=== PATIENT | female | born 1995 | race Two or more races ===

== ENCOUNTER 2017-08-31 07:34 | Outpatient (CLI) | payer OTHER | END 2017-08-31 07:41 | disposition home or self-care (01) | LOC: SONOGRAMA 07:34 | DX: Z34.00 Encounter for supervision of normal first pregnancy, unspecified trimester (principal) ==

== ENCOUNTER 2017-09-02 16:48 | Emergency (ER) | payer OTHER ==
[~2017-09-02] VITALS: Ht 165.1 cm; Wt 97.1 kg
== END 2017-09-02 22:10 | disposition home or self-care (01) ==
LOC: ER 16:48
DX: O03.9 Complete or unspecified spontaneous abortion without complication (principal)

== ENCOUNTER 2017-09-06 06:56 | Day surgery (SDC) | payer OTHER | END 2017-09-06 15:25 | disposition home or self-care (01) | LOC: CIR.AMB 06:56 | DX: O02.1 Missed abortion (principal) ==

== ENCOUNTER 2020-04-14 21:42 | Emergency (ER) | payer OTHER ==
[~2020-04-14] VITALS: Ht 165.1 cm; Wt 97.5 kg
[2020-04-14] MEDS ORDERED: PRENATABS FA T1 EACH (22:32)
[2020-04-15] MEDS ORDERED: ACETAMINOPHEN650 M2 PO (03:22)
== END 2020-04-15 04:09 | disposition home or self-care (01) ==
LOC: ER 21:42
DX: O46.8X1 Other antepartum hemorrhage, first trimester (principal); Z3A.11 11 weeks gestation of pregnancy

== ENCOUNTER → 2020-04-22 | Outpatient (CLI) | payer OTHER ==
[~2020-04-22] MED LIST: ACETAMINOPHEN650 M2 PO; PRENATABS FA T1 EACH
== END | disposition home or self-care (01) ==
LOC: PRENATAL 09:52
PROVIDERS: ATTEND Obstetrics & Gynecology Maternal & Fetal Medicine
DX: O26.851 Spotting complicating pregnancy, first trimester (principal); O36.80X1 Pregnancy with inconclusive fetal viability, fetus 1; Z36.89 Encounter for other specified antenatal screening; Z3A.08 8 weeks gestation of pregnancy

== ENCOUNTER → 2020-05-28 | Outpatient (CLI) | payer OTHER | END | disposition home or self-care (01) | LOC: PRENATAL 10:58 | PROVIDERS: ATTEND Obstetrics & Gynecology Maternal & Fetal Medicine | DX: Z36.89 Encounter for other specified antenatal screening (principal); O36.80X1 Pregnancy with inconclusive fetal viability, fetus 1; Z3A.12 12 weeks gestation of pregnancy ==

== ENCOUNTER → 2020-07-23 | Outpatient (CLI) | payer OTHER | END | disposition home or self-care (01) | LOC: PRENATAL 08:00 | PROVIDERS: ATTEND Obstetrics & Gynecology Maternal & Fetal Medicine | DX: O35.0XX1 Maternal care for (suspected) central nervous system malformation in fetus, fetus 1 (principal); O35.3XX1 Maternal care for (suspected) damage to fetus from viral disease in mother, fetus 1; O98.512 Other viral diseases complicating pregnancy, second trimester; O99.212 Obesity complicating pregnancy, second trimester; Z36.89 Encounter for other specified antenatal screening; Z3A.20 20 weeks gestation of pregnancy ==

== ENCOUNTER 2020-07-30 10:09 | Emergency (ER) | payer OTHER ==
[~2020-07-30] VITALS: Ht 165.1 cm; Wt 103.0 kg
[2020-07-30] MEDS ORDERED: PRENATAL + DHA1 EAC1 PO (10:26)
[2020-07-30] MEDS ORDERED: ZITHROMAX500 MG PO (14:35)
== END 2020-07-30 15:03 | disposition home or self-care (01) ==
LOC: ER 10:09
DX: O26.892 Other specified pregnancy related conditions, second trimester (principal); R07.89 Other chest pain; B96.0 Mycoplasma pneumoniae [M. pneumoniae] as the cause of diseases classified elsewhere; Z34.02 Encounter for supervision of normal first pregnancy, second trimester; Z11.52 Encounter for screening for COVID-19

== ENCOUNTER 2020-08-18 10:46 | Emergency (ER) | payer OTHER ==
[~2020-08-18] VITALS: Ht 165.1 cm; Wt 104.3 kg
[~2020-08-18 10:46] MED LIST changes: +PRENATAL + DHA1 EAC1 PO; +ZITHROMAX500 MG PO
== END 2020-08-18 14:05 | disposition home or self-care (01) ==
LOC: ER 10:46
DX: O26.892 Other specified pregnancy related conditions, second trimester (principal); M79.641 Pain in right hand; Z34.02 Encounter for supervision of normal first pregnancy, second trimester

== ENCOUNTER 2020-11-24 15:00 | Inpatient (IN) | payer OTHER ==
[~2020-11-24] VITALS: Ht 165.1 cm; Wt 3.6 kg
[2020-12-05] MEDS ORDERED: OXYC1TAB9 PO (12:18)
[2020-12-05] MEDS ORDERED: IBUPROFEN800 MG PO (12:18)
== END 2020-12-05 13:06 | disposition home or self-care (01) | DRG 788 ==
LOC: LDR 12-02 05:47 → OB/GYN 12-02 20:26
PROVIDERS: ADMIT Specialist; ATTEND Specialist
PROC: 10907ZC Drainage of Amniotic Fluid, Therapeutic from Products of Conception, Via Natural or Artificial Opening (ICD-10-PCS; 2020-12-02)
PROC: 3E033VJ Introduction of Other Hormone into Peripheral Vein, Percutaneous Approach (ICD-10-PCS; 2020-12-02)
PROC: 4A1HXFZ Monitoring of Products of Conception, Cardiac Rhythm, External Approach (ICD-10-PCS; 2020-12-02)
PROC: 10D00Z1 Extraction of Products of Conception, Low, Open Approach (ICD-10-PCS; principal; 2020-12-02 18:30)
DX: O65.8 Obstructed labor due to other maternal pelvic abnormalities (principal); Z37.0 Single live birth; Z3A.39 39 weeks gestation of pregnancy; Z20.822 Contact with and (suspected) exposure to COVID-19

== ENCOUNTER 2023-12-23 13:48 | Emergency (ER) | payer OTHER ==
[~2023-12-23] VITALS: Ht 165.1 cm; Wt 98.0 kg
[~2023-12-23 13:48] MED LIST changes: +IBUPROFEN800 MG PO; +OXYC1TAB9 PO
[2023-12-23 15:24] LABS: HEMOGLOBIN 11.9 g/dL (12.0-15.00); MEAN CELL VOLUME 88.6 fL (80.00-100.00); MEAN CORPUSCULAR HGB CONC 33.9 g/dl (32.0-36.0); PLATELET COUNT 243 K/uL (150-450); RED BLOOD COUNT 3.95 M/uL (4.00-6.00); RED CELL DISTRIBUTION WIDTH 13.3 % (11.5-14.5)
[2023-12-23 16:05] LABS: CALCIUM 8.7 mg/dL (8.5-10.1); CREATININE SERUM 0.67 mg/dL (0.55-1.02); GFR 105.58; POTASSIUM 3.91 mEq/L (3.5-5.1)
[2023-12-23 16:32] LABS: PH,URINE 5.5 (5.0-8.0); URINE APPEARANCE Clear; URINE BILIRRUBIN Negative (NEGATIVE); URINE BLOOD Moderate; URINE COLOR Yellow; URINE GLUCOSE Negative (NEGATIVE); URINE KETONE Negative (NEGATIVE); URINE LEUKOCYTE Trace; URINE NITRATE Negative; URINE PROTEIN Negative (NEGATIVE); URINE UROBILINOGEN 0.2 E.U./dl
[2023-12-23 16:35] LABS: URINE BACTERIA 1380.8 uL (0.0-1933); URINE EPITHELIAL CELLS 48.3 uL (0.0-38.8); URINE RBC 3.8 uL (0.0-20.8); URINE WBC 53.3 uL (0.0-23.2)
[2023-12-23 16:39] LABS: URINE CAST 0.15 uL (0.0-1.40)
== END 2023-12-23 17:45 | disposition home or self-care (01) ==
LOC: ER 13:49
PROVIDERS: General Practice
DX: O20.9 Hemorrhage in early pregnancy, unspecified (principal); Z3A.01 Less than 8 weeks gestation of pregnancy

== ENCOUNTER 2023-12-24 08:51 | Emergency (ER) | payer OTHER ==
[~2023-12-24] VITALS: Ht 165.1 cm; Wt 98.0 kg
[2023-12-24 10:43] LABS: HEMATOCRIT 35.6 % (36.0-45.00); HEMOGLOBIN 12.1 g/dL (12.0-15.00); MEAN CELL VOLUME 90.3 fL (80.00-100.00); MEAN CORPUSCULAR HEMOGLOBIN 30.7 pg (27.00-32.0); PLATELET COUNT 232 K/uL (150-450); RED BLOOD COUNT 3.94 M/uL (4.00-6.00); RED CELL DISTRIBUTION WIDTH 13.6 % (11.5-14.5)
[2023-12-24 12:04] LABS: PH,URINE 7.5 (5.0-8.0); URINE APPEARANCE Clear; URINE BILIRRUBIN Negative (NEGATIVE); URINE BLOOD Large; URINE COLOR Yellow; URINE GLUCOSE Negative (NEGATIVE); URINE KETONE Negative (NEGATIVE); URINE LEUKOCYTE Negative; URINE NITRATE Negative; URINE PROTEIN Negative (NEGATIVE); URINE UROBILINOGEN 0.2 E.U./dl
[2023-12-24 12:08] LABS: URINE EPITHELIAL CELLS 6.9 uL (0.0-38.8); URINE RBC 2.2 uL (0.0-20.8); URINE WBC 2.6 uL (0.0-23.2)
== END 2023-12-24 14:27 | disposition home or self-care (01) ==
LOC: ER 08:52
PROVIDERS: General Practice
DX: O20.8 Other hemorrhage in early pregnancy (principal); Z3A.01 Less than 8 weeks gestation of pregnancy; N93.9 Abnormal uterine and vaginal bleeding, unspecified

== ENCOUNTER 2023-12-26 09:31 | Emergency (ER) | payer OTHER ==
[~2023-12-26] VITALS: Ht 165.1 cm; Wt 98.0 kg
[2023-12-26 10:56] LABS: HEMATOCRIT 36.9 % (36.0-45.00); HEMOGLOBIN 12.4 g/dL (12.0-15.00); MEAN CELL VOLUME 88.9 fL (80.00-100.00); MEAN CORPUSCULAR HEMOGLOBIN 29.9 pg (27.00-32.0); MEAN CORPUSCULAR HGB CONC 33.6 g/dl (32.0-36.0); PLATELET COUNT 240 K/uL (150-450); RED BLOOD COUNT 4.15 M/uL (4.00-6.00); RED CELL DISTRIBUTION WIDTH 13.5 % (11.5-14.5)
== END 2023-12-26 13:55 | disposition home or self-care (01) ==
LOC: ER 09:32
PROVIDERS: Emergency Medicine
DX: O20.0 Threatened abortion (principal); Z3A.01 Less than 8 weeks gestation of pregnancy

== ENCOUNTER → 2024-10-18 07:42 | Outpatient (CLI) | payer OTHER | END | disposition home or self-care (01) | LOC: PRENATAL 07:42 | PROVIDERS: ATTEND Obstetrics & Gynecology Maternal & Fetal Medicine | DX: O44.00 Complete placenta previa NOS or without hemorrhage, unspecified trimester (principal); Z3A.20 20 weeks gestation of pregnancy ==

== ENCOUNTER 2024-12-26 21:54 | Outpatient (CLI) | payer OTHER ==
[2024-12-26 21:07] VITALS: BP 108/65
[2024-12-26] MEDS ORDERED: RINGERS SOLUTION,LACTATED 1,000 ML IV SCH (22:15)
[2024-12-26 23:08] LABS: BASO % 0.5 % (0.1-1.2); EOS # 0.16 (0.04-0.54); EOS % 2.0 % (0.7-7.0); LYMPH # 1.90 (1.18-3.74); LYMPH % 23.6 % (19.3-53.1); MEAN PLATELET VOLUME 10.40 fl (9.4-12.4); MONO # 0.75 (0.24-0.82); MONO % 9.3 % (4.7-12.5); NEUT # 5.12 (1.56-6.13); NEUT % 63.7 % (34.0-71.1); RED CELL DISTRIBUTION WIDTH 14.2 % (11.6-14.4)
[2024-12-26 23:09] LABS: URINE APPEARANCE Clear; URINE BILIRRUBIN Negative (NEGATIVE); URINE BLOOD Negative; URINE COLOR Yellow; URINE GLUCOSE Negative (NEGATIVE); URINE KETONE 15 (NEGATIVE); URINE LEUKOCYTE Negative; URINE NITRATE Negative; URINE PROTEIN Negative (NEGATIVE); URINE UROBILINOGEN 0.2 E.U./dl
[2024-12-26 23:13] LABS: URINE BACTERIA 564.0 uL (0.0-1933); URINE EPITHELIAL CELLS 15.6 uL (0.0-38.8); URINE WBC 11.6 uL (0.0-23.2)
[2024-12-26 23:20] LABS: URINE CAST 0.00 uL (0.0-1.40); URINE RBC 0.4 uL (0.0-20.8)
[2024-12-26 23:42] VITALS: BP 91/51
[2024-12-27 04:25] VITALS: BP 90/55
[2024-12-27 06:38] VITALS: BP 89/61; O2SAT 98
[2024-12-27] MEDS ORDERED: FERROUS SULFATE 325 MG TABLET.EC PO SCH (09:00)
[2024-12-27] MEDS ORDERED: PNV,CALCIUM 72/IRON/FOLIC ACID 1 TAB TABLET PO SCH (09:00)
[2024-12-27 12:13] VITALS: BP 102/66
== END 2024-12-27 13:08 | disposition home or self-care (01) ==
LOC: OBS/DEL 21:54
PROVIDERS: Obstetrics & Gynecology; ATTEND Specialist
DX: O26.893 Other specified pregnancy related conditions, third trimester (principal); R10.2 Pelvic and perineal pain; O26.849 Uterine size-date discrepancy, unspecified trimester; O36.8130 Decreased fetal movements, third trimester, not applicable or unspecified; O60.00 Preterm labor without delivery, unspecified trimester; O26.859 Spotting complicating pregnancy, unspecified trimester; Z3A.32 32 weeks gestation of pregnancy

== ENCOUNTER 2025-01-23 08:53 | Outpatient (CLI) | payer OTHER | END 2025-01-23 08:54 | disposition home or self-care (01) | LOC: PRENATAL 08:53 | PROVIDERS: ATTEND Obstetrics & Gynecology Maternal & Fetal Medicine | DX: O26.849 Uterine size-date discrepancy, unspecified trimester (principal); O36.8130 Decreased fetal movements, third trimester, not applicable or unspecified; Z14.8 Genetic carrier of other disease; Z3A.34 34 weeks gestation of pregnancy ==

== ENCOUNTER 2025-02-14 09:45 | Inpatient (IN) | payer OTHER ==
[~2025-02-14] VITALS: Ht 165.1 cm; Wt 115.7 kg
[2025-02-14 10:47] LABS: URINE APPEARANCE Clear; URINE BILIRRUBIN Negative (NEGATIVE); URINE BLOOD Negative; URINE COLOR Yellow; URINE GLUCOSE Negative (NEGATIVE); URINE KETONE Negative (NEGATIVE); URINE LEUKOCYTE Small; URINE NITRATE Negative; URINE PROTEIN Negative (NEGATIVE); URINE UROBILINOGEN 0.2 E.U./dl
[2025-02-14 10:48] LABS: BASO % 0.7 % (0.1-1.2); EOS # 0.06 (0.04-0.54); EOS % 0.8 % (0.7-7.0); LYMPH # 1.60 (1.18-3.74); LYMPH % 22.5 % (19.3-53.1); MEAN PLATELET VOLUME 10.80 fl (9.4-12.4); MONO # 0.68 (0.24-0.82); MONO % 9.6 % (4.7-12.5); NEUT # 4.66 (1.56-6.13); NEUT % 65.6 % (34.0-71.1); RED CELL DISTRIBUTION WIDTH 15.3 % (11.6-14.4)
[2025-02-14 10:52] LABS: URINE BACTERIA 893.9 uL (0.0-1933); URINE EPITHELIAL CELLS 23.5 uL (0.0-38.8); URINE WBC 24.9 uL (0.0-23.2)
[2025-02-14 11:31] LABS: URINE CAST 0.00 uL (0.0-1.40); URINE RBC 0.4 uL (0.0-20.8)
[2025-02-14 11:32] LABS: INR < 0.93
[2025-02-14 11:33] LABS: ALT/SGPT 25.0 U/L (12-78); AST/SGOT 12.0 U/L (15-37); BILIRUBIN TOTAL 0.3 mg/dL (0.3-1.2); BUN CREA RATIO 19.0 (7.0-25.0); CREATININE SERUM 0.43 mg/dL (0.55-1.02); GFR 174.84; GLOBULINA 3.5 G/DL (2.4-3.5); GLUCOSE FASTING 85.0 mg/dL (65-100); OSMOLALITY SERUM 281.0 MOSM/KG (275-295)
[2025-02-22 05:34] VITALS: BP 107/70
[2025-02-22] MEDS ORDERED: IRON325 MG PO (06:19)
[2025-02-22] MEDS ORDERED: OXYTOCIN 10 UNITS/ML VIAL ONE (07:07)
[2025-02-22] MEDS ORDERED: CEFAZOLIN SODIUM 1,000 MG VIAL ONE (07:07)
[2025-02-22] MEDS ORDERED: ERYTHROMYCIN BASE OPHT 1GM EACH TUBE OP ONE (07:07)
[2025-02-22] MEDS ORDERED: RINGERS SOLUTION,LACTATED 1,000 ML IV SCH (10:15)
[2025-02-22] MEDS ORDERED: MORPHINE SULFATE 4 MG/ML CARTRIDGE IV PRN (10:15)
[2025-02-22 17:10] VITALS: BP 119/79
[2025-02-23] VITALS: BP 144/80
[2025-02-23 02:08] LABS: BASO % 0.2 % (0.1-1.2); EOS # 0.01 (0.04-0.54); EOS % 0.1 % (0.7-7.0); LYMPH # 0.85 (1.18-3.74); LYMPH % 10.1 % (19.3-53.1); MEAN PLATELET VOLUME 10.80 fl (9.4-12.4); MONO # 0.53 (0.24-0.82); MONO % 6.3 % (4.7-12.5); NEUT # 6.98 (1.56-6.13); NEUT % 82.8 % (34.0-71.1); RED CELL DISTRIBUTION WIDTH 15.4 % (11.6-14.4)
[2025-02-23 09:15] VITALS: BP 121/77
[2025-02-23 14:12] VITALS: BP 115/75
[2025-02-23 19:13] VITALS: BP 109/64
[2025-02-24 01:28] VITALS: BP 121/70
[2025-02-24 08:00] VITALS: BP 108/72
[2025-02-25 00:53] VITALS: BP 114/69; O2SAT 99
[2025-02-25] MEDS ORDERED: IBUPROFEN800 MG PO (07:36)
[2025-02-25 08:17] VITALS: BP 112/75
== END 2025-02-25 14:11 | disposition home or self-care (01) | DRG 785 ==
LOC: O/R 02-22 06:00 → SURG 02-22 08:30 → OB/GYN 02-22 14:28
PROVIDERS: ADMIT Specialist; ATTEND Specialist
PROC: 0UB70ZZ Excision of Bilateral Fallopian Tubes, Open Approach (ICD-10-PCS; 2025-02-22)
PROC: 4A1HXCZ Monitoring of Products of Conception, Cardiac Rate, External Approach (ICD-10-PCS; 2025-02-22)
PROC: 10D00Z1 Extraction of Products of Conception, Low, Open Approach (ICD-10-PCS; principal; 2025-02-22 08:30)
DX: O34.211 Maternal care for low transverse scar from previous cesarean delivery (principal); Z3A.38 38 weeks gestation of pregnancy; Z37.0 Single live birth; Z30.2 Encounter for sterilization